=== PATIENT | male | born 1935 | race Caucasian/White ===

== ENCOUNTER 2020-07-04 15:31 | Outpatient (CLI) | payer MEDICARE, SELFPAY ==
--- NOTE | 2020-07-04 | USCV_ITS ---
Cali Caal Age: 85 Gender: M : 1935 Exam Date: 07/04/2020 16:01 Ordering Phys: Luh Rubio APN Technologist: Fang Mazariegos [place] [facility] [place]: [place] HISTORY: Lower extremity pain. PROCEDURES: Venous duplex imaging was performed in only the right lower extremity. The following venous structures were evaluated: common femoral vein, profunda vein, proximal portion of the greater saphenous vein, superficial femoral vein, and the popliteal vein. In addition, the posterior tibial and peroneal trunk were evaluated. Serial compression, augmentation maneuvers, and spectral Doppler flow evaluation were performed. FINDINGS: Normal 2-D Doppler and augmentation and compressibility throughout the lower extremity venous structures. Additional imaging through the proximal calf veins also reveals no thrombus. Limited evaluation of the greater saphenous vein is patent with no thrombus.. Echolucent areas were noted in the subcutaneous tissue CONCLUSIONS No evidence of DVT in the above-mentioned identifiable veins. Features of fluid retention/edema of the right lower extremity Dr Hannah Keating MD [facility] (Electronically Signed) Final Date: 07 July 2020 09:15 S
== END 2020-07-04 15:32 | disposition home or self-care (01) ==
PROVIDERS: PCP Family Medicine; Visit Provider Nurse Practitioner
DX: M79.604 Pain in right leg (principal); I48.91 Unspecified atrial fibrillation
CPT/HCPCS: 93971

== ENCOUNTER 2021-12-02 06:00 | Outpatient (RCR) | payer MEDICARE, SELFPAY | END 2021-12-13 23:59 | disposition home or self-care (01) | LOC: SPT 06:00 | PROVIDERS: PCP Family Medicine; Referring Provider Family Medicine; Visit Provider Family Medicine | DX: I87.8 Other specified disorders of veins (principal); I89.0 Lymphedema, not elsewhere classified | CPT/HCPCS: 29581; 97140; 97161 ==

== ENCOUNTER → 2022-08-24 12:51 | Outpatient (BNVA) | payer MEDICARE, SELFPAY | PROVIDERS: PCP Family Medicine; Visit Provider Nurse Practitioner Family | DX: Z09 Encounter for follow-up examination after completed treatment for conditions other than malignant neoplasm (principal) | CPT/HCPCS: 99213 ==

== ENCOUNTER → 2022-11-29 09:32 | Outpatient (BNVA) | payer MEDICARE, SELFPAY | PROVIDERS: PCP Family Medicine; Visit Provider Podiatrist Foot & Ankle Surgery | DX: E11.42 Type 2 diabetes mellitus with diabetic polyneuropathy (principal); M20.5X1 Other deformities of toe(s) (acquired), right foot; M20.5X2 Other deformities of toe(s) (acquired), left foot; Z79.84 Long term (current) use of oral hypoglycemic drugs; B35.1 Tinea unguium; M20.41 Other hammer toe(s) (acquired), right foot; M20.42 Other hammer toe(s) (acquired), left foot; M21.6X1 Other acquired deformities of right foot; M21.6X2 Other acquired deformities of left foot; G62.9 Polyneuropathy, unspecified; L90.9 Atrophic disorder of skin, unspecified | CPT/HCPCS: 11721; 99204 ==

== ENCOUNTER → 2023-02-07 10:06 | Outpatient (BNVA) | payer MEDICARE, SELFPAY | PROVIDERS: PCP Family Medicine; Visit Provider Podiatrist Foot & Ankle Surgery | DX: B35.1 Tinea unguium (principal); M20.41 Other hammer toe(s) (acquired), right foot; M20.42 Other hammer toe(s) (acquired), left foot; M20.5X9 Other deformities of toe(s) (acquired), unspecified foot; M21.6X1 Other acquired deformities of right foot; M21.6X2 Other acquired deformities of left foot; G62.9 Polyneuropathy, unspecified; L90.9 Atrophic disorder of skin, unspecified; E11.42 Type 2 diabetes mellitus with diabetic polyneuropathy; Z79.84 Long term (current) use of oral hypoglycemic drugs | CPT/HCPCS: 11721 ==

== ENCOUNTER 2023-04-18 11:04 | Outpatient (CLI) | payer MEDICARE, SELFPAY | END 2023-04-18 11:05 | disposition home or self-care (01) | LOC: RAD 11:11 | PROVIDERS: PCP Family Medicine; Visit Provider Nurse Practitioner Family | DX: E11.42 Type 2 diabetes mellitus with diabetic polyneuropathy (principal); B35.1 Tinea unguium; M20.41 Other hammer toe(s) (acquired), right foot; M20.42 Other hammer toe(s) (acquired), left foot; M20.5X9 Other deformities of toe(s) (acquired), unspecified foot; M21.6X1 Other acquired deformities of right foot; M21.6X2 Other acquired deformities of left foot; G62.9 Polyneuropathy, unspecified; L90.9 Atrophic disorder of skin, unspecified; Z79.84 Long term (current) use of oral hypoglycemic drugs | CPT/HCPCS: 11721; 72110 ==

== ENCOUNTER → 2023-07-11 09:40 | Outpatient (BNVA) | payer MEDICARE, MEDICAID, SELFPAY | PROVIDERS: PCP Family Medicine; Visit Provider Podiatrist Foot & Ankle Surgery | DX: B35.1 Tinea unguium (principal); M20.41 Other hammer toe(s) (acquired), right foot; M20.42 Other hammer toe(s) (acquired), left foot; M21.6X1 Other acquired deformities of right foot; M21.6X2 Other acquired deformities of left foot; G62.9 Polyneuropathy, unspecified; L90.9 Atrophic disorder of skin, unspecified; E11.42 Type 2 diabetes mellitus with diabetic polyneuropathy; Z79.84 Long term (current) use of oral hypoglycemic drugs | CPT/HCPCS: 11721 ==

== ENCOUNTER → 2023-08-02 09:10 | Outpatient (BNVA) | payer MEDICARE, SELFPAY | PROVIDERS: PCP Family Medicine; Visit Provider Anesthesiology Pain Medicine | DX: M47.816 Spondylosis without myelopathy or radiculopathy, lumbar region; M51.16 Intervertebral disc disorders with radiculopathy, lumbar region; M79.18 Myalgia, other site | CPT/HCPCS: 99204 ==

== ENCOUNTER → 2023-08-15 13:24 | Outpatient (BNVA) | payer MEDICARE, MEDICAID, SELFPAY | PROVIDERS: PCP Family Medicine; Visit Provider Anesthesiology Pain Medicine | DX: M79.18 Myalgia, other site (principal); M47.816 Spondylosis without myelopathy or radiculopathy, lumbar region; M51.16 Intervertebral disc disorders with radiculopathy, lumbar region | CPT/HCPCS: 20553; 99214; J1010; J3490 ==

== ENCOUNTER → 2023-09-13 09:25 | Outpatient (BNVA) | payer MEDICARE, MEDICAID, SELFPAY | PROVIDERS: PCP Family Medicine; Visit Provider Podiatrist Foot & Ankle Surgery | DX: B35.1 Tinea unguium (principal); M20.41 Other hammer toe(s) (acquired), right foot; M20.42 Other hammer toe(s) (acquired), left foot; M20.5X9 Other deformities of toe(s) (acquired), unspecified foot; M21.6X1 Other acquired deformities of right foot; M21.6X2 Other acquired deformities of left foot; G62.9 Polyneuropathy, unspecified; L90.9 Atrophic disorder of skin, unspecified; E11.42 Type 2 diabetes mellitus with diabetic polyneuropathy; Z79.84 Long term (current) use of oral hypoglycemic drugs | CPT/HCPCS: 11721 ==

== ENCOUNTER 2023-09-15 06:00 | Outpatient (RCR) | payer MEDICARE, SELFPAY | END 2023-10-14 23:59 | disposition home or self-care (01) | LOC: GPT 06:00 | PROVIDERS: PCP Family Medicine; Visit Provider Anesthesiology Pain Medicine | DX: M54.50 Low back pain, unspecified (principal); G89.29 Other chronic pain | CPT/HCPCS: 97110; 97140; 97162 ==

== ENCOUNTER 2023-09-22 06:00 | Outpatient (RCR) | payer MEDICARE, SELFPAY | END 2023-10-14 23:59 | disposition home or self-care (01) | LOC: SPT 06:00 | PROVIDERS: PCP Family Medicine; Visit Provider Anesthesiology Pain Medicine | DX: M54.50 Low back pain, unspecified (principal); G89.29 Other chronic pain | CPT/HCPCS: 97110 ==

== ENCOUNTER → 2023-10-17 10:07 | Outpatient (BNVA) | payer MEDICARE, SELFPAY | PROVIDERS: PCP Family Medicine; Visit Provider Anesthesiology Pain Medicine | DX: M47.816 Spondylosis without myelopathy or radiculopathy, lumbar region (principal); M51.16 Intervertebral disc disorders with radiculopathy, lumbar region; M79.18 Myalgia, other site | CPT/HCPCS: 99214 ==

== ENCOUNTER → 2023-11-15 09:37 | Outpatient (BNVA) | payer MEDICARE, SELFPAY | PROVIDERS: PCP Family Medicine; Visit Provider Podiatrist Foot & Ankle Surgery | DX: B35.1 Tinea unguium (principal); M20.41 Other hammer toe(s) (acquired), right foot; M20.42 Other hammer toe(s) (acquired), left foot; M21.6X1 Other acquired deformities of right foot; M21.6X2 Other acquired deformities of left foot; G62.9 Polyneuropathy, unspecified; L90.9 Atrophic disorder of skin, unspecified; E11.42 Type 2 diabetes mellitus with diabetic polyneuropathy; M20.5X1 Other deformities of toe(s) (acquired), right foot; M20.5X2 Other deformities of toe(s) (acquired), left foot; Z79.84 Long term (current) use of oral hypoglycemic drugs | CPT/HCPCS: 11721 ==

== ENCOUNTER 2024-01-28 22:52 | Emergency (ER) | payer MEDICARE, SELFPAY ==
[2024-01-28 23:01] VITALS: BP 104/59; PULSE 65; RESP 17; TEMP 36.7; O2SAT 98; BMI 29.2
[2024-01-29 02:07] VITALS: BP 113/61; PULSE 59; RESP 18; O2SAT 94
[2024-01-29 02:19] LABS: Basophils # 0.1 10^3/uL (0.0-0.1); Basophils % 0.6 %; Eosinophils # 0.5 10^3/uL (0.0-0.8); Eosinophils % 4.9 %; Lymphocytes # 1.7 10^3/uL (0.8-4.8); Mean Corpuscular HGB Conc 31.1 g/dL (30-55); Mean Corpuscular Hemoglobin 27.6 pg (27-33); Mean Corpuscular Volume 88.7 fl (82-101); Mean Platelet Volume 8.9 fL (7.4-10.4); Monocytes # 1.1 10^3/uL (0.2-0.9); Monocytes % 9.7 %; Neutrophils # 7.43 10^3/uL (1.8-7.7); Neutrophils % 68.2 %; Nucleated Red Blood Cells % 0 %; Platelet Count 184 10^3/cmm (157-399); Red Blood Count 4.17 10^6/uL (3.85-5.65); Red Cell Distribution Width 14.4 % (12.1-15.1); White Blood Count 10.88 10^3/uL (3.29-11.43)
[2024-01-29 02:37] LABS: Alanine Aminotransferase 7 U/L (0-41); Albumin Level 3.5 g/dL (3.5-5.2); Alkaline Phosphatase 67 U/L (40-130); Anion Gap 13.9 (5-19); Aspartate Amino Transferase 13 U/L (0-40); Blood Urea Nitrogen 27 mg/dL (8-23); Calcium 8.5 mg/dL (8.5-10.5); Carbon Dioxide 30 mmol/L (22-29); Chloride 96 mmol/L (98-107); Globulin 3.6 g/dL (1.3-4.6); Glucose 125 mg/dL (65-115); Osmolality Calculated 289 mOsm/kg (285-295); Potassium 3.9 mmol/L (3.5-5.1); Sodium 136 mmol/L (136-145); Total Bilirubin 0.3 mg/dL (0.15-1.2); Total Protein 7.1 g/dL (6.6-8.7)
[2024-01-29 02:45] LABS: Creatinine Clr Calc Pharmacy 28.7362
[2024-01-29 02:56] LABS: Add Urine Culture? Yes; Add Urine Microscopic? YES; Bacteria Urine 4+ /hpf; Bilirubin Urine Neg (Negative); Blood Urine 3+ (Negative); Glucose Urine UA Norm (Normal); Ketones Urine Negative (Negative); Leukocyte Esterase Urine 2+ (Negative); Mucus Urine TRACE /hpf; Nitrate Urine Negative (Negative); Protein Urine 1+ (Negative); RBC Urine >100 /hpf (0-2); Squamous Epithelial Cell Urine 0-4 /hpf (0-5); Urine Appearance Slightly Cloudy (CLEAR); Urine Color Yellow (Yellow); Urobilinogen Urine Norm (Negative); WBC Urine >100 /hpf (0-5); pH Urine 5 (5-7)
[2024-01-29 03:19] VITALS: BP 123/65; PULSE 59; RESP 18; O2SAT 97
[2024-01-29 03:35] VITALS: BP 129/84; PULSE 55; O2SAT 97
[2024-01-29 04:08] VITALS: BP 129/84; PULSE 55; RESP 18; O2SAT 97
--- NOTE | 2024-01-29 06:10 | ED_ITS ---
HPI - Male Genitourinary 2 General: Chief complaint: Urogenital-Male Stated complaint: cath issues Time Seen by Provider: 01/29/24 00:44 History of Present Illness: 88-year-old gentleman who had a Brown pl aced couple of days ago in the urology office. He presents with significant suprapubic discomfort, and leaking of urine around his catheter into his undergarments. He denies fever. He notes some burning. Related Data Home Medications Medication Instructions Recorded Confirmed acetaminophen 650 mg 650 mg PO Q8H 02/13/20 11/15/23 tablet,extended release (Tylenol Arthritis Pain) alprazolam 0.5 mg tablet 0.5 mg PO TID PRN 02/13/20 11/15/23 apixaban 5 mg tablet (Eliquis) 5 mg PO BID 02/13/20 11/15/23 atorvastatin 40 mg tablet 40 mg PO DAILY 02/13/20 11/15/23 calcium carbonate 600 mg-vitamin cap PO DAILY 02/13/20 11/15/23 D3 12.5 mcg (500 unit) capsule (Calcium 600 with Vitamin D3) diclofenac sodium 1 % topical gel 2 gm topical QID 02/13/20 11/15/23 (Voltaren) finasteride 5 mg tablet 5 mg PO DAILY 02/13/20 11/15/23 furosemide 20 mg tablet 10 mg PO QAM 02/13/20 11/15/23 isosorbide mononitrate 60 mg 60 mg PO DAILY 02/13/20 11/15/23 tablet,extended release 24 hr lisinopril 2.5 mg tablet 2.5 mg PO DAILY 02/13/20 11/15/23 magnesium gluconate 29.25 mg (500 29.3 mg PO DAILY 02/13/20 11/15/23 mg) tablet metformin 1,000 mg tablet 1,000 mg PO BID 02/13/20 11/15/23 nitroglycerin 0.4 mg sublingual 0.4 mg sublingual Q5M PRN 02/13/20 11/15/23 tablet (Nitrostat) omega-3 fatty acids 1,000 mg 1,000 mg PO DAILY 02/13/20 11/15/23 capsule omeprazole 20 mg capsule,delayed 20 mg PO DAILY 02/13/20 11/15/23 release pregabalin 75 mg capsule (Lyrica) 75 mg PO BID 02/13/20 11/15/23 pyridoxine (vitamin B6) 100 mg 50 mg PO DAILY 02/13/20 11/15/23 tablet sitagliptin phosphate 100 mg tablet 100 mg PO DAILY 02/13/20 11/15/23 tamsulosin 0.4 mg capsule 0.4 mg PO DAILY 02/13/20 11/15/23 tramadol 50 mg tablet 50 mg PO BID PRN 02/13/20 11/15/23 Previous Rx's Medication Instructions Recorded Diabetic shoes with 3 pairs of #1 ea 11/29/22 inserts Allergies Allergy/AdvReac Type Severity Reaction Status Date / Time Latex, Natural Rubber Allergy ALGY-Rash Verified 01/28/24 23:07 methotrexate Allergy Unknown Verified 01/28/24 23:07 PFSH ED 2 PFSH: Family History Other CAD (coronary artery disease) Cancer Diabetes Denies family history of Anesthesia complication Bleeding disorder Social History Smoking and tobacco/nicotine status: never used tobacco/nicotine Alcohol intake: never Substance/Drug Use: never Lives independently: Yes Household members: spouse Marital status: Current occupational status: retired Physical Exam 2 Const: COMMON NORMALS: no acute distress GENERAL APPEARANCE: cooperative and frail appearing (mildly); not ill appearing HENMT: COMMON NORMALS: normocephalic, atraumatic and Normal external nose present HEAD & SCALP: normocephalic and atraumatic FACE & SINUS: normal facial exam and face symmetric NOSE: Normal external nose present Eye: COMMON NORMALS: Equal, round and reactive pupils present and EOMs intact bilaterally PUPIL: Yes Equal, round and reactive pupils present Neck/C-Spine: GENERAL: Yes trachea midline Chest: CHEST: Yes Symmetrical chest wall rise Resp: COMMON NORMALS: normal respiratory effort, No retractions, No use of accessory muscles and clear to auscultation bilaterally AUSCULTATION: clear to auscultation bilaterally Cardio: COMMON NORMALS: regular rate and regular rhythm RATE: regular rate RHYTHM: regular rhythm GI: COMMON NORMALS: Normal to inspection, nondistended, normoactive bowel sounds present PALPATION: Yes Bladder palpation abnormal : BLADDER/KIDNEY EXAM: Yes catheter in place and Yes Bladder palpation abnormal Bladder abnormal details: tender and distended midway to the umbilicus MEATUS: no meatla discharge Extremity: COMMON NORMALS: no pedal edema Neuro: BRITNEY COMA SCALE: document GCS findings Saunemin coma scale eye opening: Spontaneous Saunemin coma scale verbal response: Orientated Britney coma scale motor response: Obey commands Saunemin coma scale total score: 15 S ENSORY EXAM: Yes extremities (intact) Psych: COMMON NORMALS: speech normal SPEECH: Yes normal speech Skin: COMMON NORMALS: no rashes or lesions noted GENERAL SKIN EXAM: no rashes or lesions noted Course 2 Vital Signs: Vital signs: Vital Signs Temperature 98.1 F 01/28/24 23:01 Pulse Rate 55 L 01/29/24 04:08 Respiratory Rate 18 01/29/24 04:08 Blood Pressure 129/84 01/29/24 04:08 Pulse Oximetry 97 01/29/24 04:08 Oxygen Delivery Me thod Room Air 01/29/24 03:35 MDM - Male Medical Decision Making Brown was flushed by nursing, repositioned, and is flowing normally now. No further leakage. Bladder scan revealed less than 35 cc in the bladder post flush. He is feeling much better. Urinalysis demonstrates hematuria and white cells. He is on ciprofloxacin. He will continue this. He knows to return for any worsening symptoms. Lab Data 01/29/24 02:15 01/29/24 02:15 Laboratory Results WBC 10.88 10^3/uL (3.29-11.43) 01/29/24 02:15 RBC 4.17 10^6/uL (3.85-5.65) 01/29/24 02:15 Hgb 11.50 g/dL (11.27-16.99) 01/29/24 02:15 Hct 37.0 % (37-53) 01/29/24 02:15 MCV 88.7 fl (82-101) 01/29/24 02:15 MCH 27.6 pg (27-33) 01/29/24 02:15 MCHC 31.1 g/dL (30-55) 01/29/24 02:15 RDW 14.4 % (12.1-15.1) 01/29/24 02:15 Plt Count 184 10^3/cmm (157-399) 01/29/24 02:15 MPV 8.9 fL (7.4-10.4) 01/29/24 02:15 Neut % (Auto) 68.2 % 01/29/24 02:15 Lymph % (Auto) 16.0 % 01/29/24 02:15 [place] % (Auto) 9.7 % 01/29/24 02:15 Eos % (Auto) 4.9 % 01/29/24 02:15 Baso % (Auto) 0.6 % 01/29/24 02:15 Neut # (Auto) 7.43 10^3/uL (1.8-7.7) 01/29/24 02:15 Lymph # (Auto) 1.7 10^3/uL (0.8-4.8) 01/29/24 02:15 [place] # (Auto) 1.1 10^3/uL (0.2-0.9) H 01/29/24 02:15 Eos # (Auto) 0.5 10^3/uL (0.0-0.8) 01/29/24 02:15 Baso # (Auto) 0.1 10^3/uL (0.0-0.1) 01/29/24 02:15 Nucleated RBC % (auto) 0 % 01/29/24 02:15 Nucleated RBCs # 0.0 /100WBC 01/29/24 02:15 Sodium 136 mmol/L (136-145) 01/29/24 02:15 Potassium 3.9 mmol/L (3.5-5.1) 01/29/24 02:15 Chloride 96 mmol/L (98-107) L 01/29/24 02:15 Carbon Dioxide 30 mmol/L (22-29) H 01/29/24 02:15 Anion Gap 13.9 (5-19) 01/29/24 02:15 BUN 27 mg/dL (8-23) H 01/29/24 02:15 Creatinine 1.7 mg/dL (0.7-1.2) H 01/29/24 02:15 GFR Calculation Not Reportable 01/29/24 02:15 Glucose 125 mg/dL (65-115) H 01/29/24 02:15 Calculated Osmolality 289 mOsm/kg (285-295) 01/29/24 02:15 Lactic Acid 2.0 mmol/L (0.5-2.2) 01/29/24 02:15 Calcium 8.5 mg/dL (8.5-10.5) 01/29/24 02:15 Total Bilirubin 0.3 mg/dL (0.15-1.2) 01/29/24 02:15 AST 13 U/L (0-40) 01/29/24 02:15 ALT 7 U/L (0-41) 01/29/24 02:15 Alkaline Phosphatase 67 U/L (40-130) 01/29/24 02:15 Total Protein 7.1 g/dL (6.6-8.7) 01/29/24 02:15 Albumin 3.5 g/dL (3.5-5.2) 01/29/24 02:15 Globulin 3.6 g/dL (1.3-4.6) 01/29/24 02:15 Urine Color Yellow (Yellow) 01/29/24 02:20 Urine Appearance Slightly cloudy (CLEAR) 01/29/24 02:20 Urine pH 5 (5-7) 01/29/24 02:20 Ur Specific [place] 1.010 (1.005-1.030) 01/29/24 02:20 Urine Protein 1+ (Negative) H 01/29/24 02:20 Urine Glucose (UA) Norm (Normal) 01/29/24 02:20 Urine Ketones Negative (Negative) 01/29/24 02:20 Urine Blood 3+ (Negative) H 01/29/24 02:20 Urine Nitrate Negative (Negative) 01/29/24 02:20 Urine Bilirubin Neg (Negative) 01/29/24 02:20 Urine Urobilinogen Norm mg/dL (Negative) 01/29/24 02:20 Ur Leukocyte Esterase 2+ (Negative) H 01/29/24 02:20 Urine RBC >100 /hpf (0-2) H 01/29/24 02:20 Urine WBC >100 /hpf (0-5) H 01/29/24 02:20 Ur Squamous Epith Cells 0-4 /hpf (0-5) H 01/29/24 02:20 Amorphous Sediment Not Reportable 01/29/24 02:20 Urine Bacteria 4+ /hpf (NONE) H 01/29/24 02:20 Urine Mucus Trace /hpf 01/29/24 02:20 No radiology studies performed this visit Discharge Plan Discharge Patient Disposition: Home Clinical Impression: Problem with urinary catheter Condition: Stable Prescriptions: No Action acetaminophen [Tylenol Arthritis Pain] 650 mg tablet extended release 650 mg PO Q8H alprazolam 0.5 mg tablet 0.5 mg PO TID PRN atorvastatin 40 mg tablet 40 mg PO DAILY calcium carbonate-vitamin D3 [Calcium 600 with Vitamin D3] 600 mg(1,500mg) - 500 unit capsule PO DAILY diclofenac sodium [Voltaren] 1 % gel 2 gm TOPICAL QID Rx Instructions: apply to single elbow, wrist or hand; for hand includes palm/fingers/back of hand finasteride 5 mg tablet 5 mg PO DAILY furosemide 20 mg tablet 10 mg PO QAM pregabalin [Lyrica] 75 mg capsule 75 mg PO BID isosorbide mononitrate 60 mg tablet extended release 24 hr 60 mg PO DAILY lisinopril 2.5 mg tablet 2.5 mg PO DAILY magnesium gluconate 29.25 mg (500 mg) tablet 29.3 mg PO DAILY metformin 1,000 mg tablet 1,000 mg PO BID nitroglycerin [Nitrostat] 0.4 mg tablet, sublingual 0.4 mg SUBLINGUAL Q5M PRN Rx Instructions: do not exceed 3 doses per episode omega-3 fatty acids 1,000 mg capsule 1,000 mg PO DAILY omeprazole 20 mg capsule,delayed release(DR/EC) 20 mg PO DAILY pyridoxine (vitamin B6) 100 mg tablet 50 mg PO DAILY tamsulosin 0.4 mg capsule 0.4 mg PO DAILY sitagliptin phosphate 100 mg tablet 100 mg PO DAILY tramadol 50 mg tablet 50 mg PO BID PRN Eliquis 5 mg tablet 5 mg PO BID (DME) Diabetic shoes with 3 pairs of inserts See Rx Instructions .Route .MEDSUPPLY Qty: 1 0RF [facility] Discharge Orders: Discharge ED (Routine); Ordered 01/29/24 Ordered By: He Kuhn Referrals: Emely Cao MD [Primary Care Provider] - 1-3 days Patient Instructions: Brown Catheter Placement and Care (ED), Opioid Safety, Pain Management Activity Restrictions/Additional Instructions: Return for any continued problems. 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
== END 2024-01-29 04:11 | disposition home or self-care (01) ==
PROVIDERS: Emergency Provider Emergency Medicine; PCP Family Medicine
DX: T83.038A Leakage of other urinary catheter, initial encounter (principal); Z79.01 Long term (current) use of anticoagulants; Z79.84 Long term (current) use of oral hypoglycemic drugs
CPT/HCPCS: 36415; 51798; 80053; 81001; 83605; 85025; 87077; 87086; 87186; 99283

== ENCOUNTER 2024-02-21 12:47 | Outpatient (RCR) | payer MEDICARE, SELFPAY | END 2024-03-15 23:59 | disposition home or self-care (01) | LOC: GPT 12:47 | PROVIDERS: PCP Family Medicine; Visit Provider Nurse Practitioner Family | DX: M06.9 Rheumatoid arthritis, unspecified (principal) | CPT/HCPCS: 97162 ==